=== PATIENT | female | born 1975 | race Caucasian/White ===

== ENCOUNTER 2023-02-22 01:09 | Inpatient (IN) | payer MEDICAID, OTHER ==
[~2023-02-22] VITALS: Ht 147.3 cm; Wt 59.0 kg
[2023-02-22] MEDS ORDERED: LIDOCAINE HCL 1% 20ML VIAL (Pyxis) INJ INFIL SCH (01:45)
[2023-02-22] MEDS ORDERED: CARBOPROST TROMETHAMINE 250 MCG/ML AMPUL IM PRN (01:45)
[2023-02-22] MEDS ORDERED: DIPHENHYDRAMINE 50MG/ML VIAL IM PRN (01:45)
[2023-02-22] MEDS ORDERED: METHYLERGONOVINE MALEATE 0.2 MG/ML IM PRN ×2 (01:45→21:00)
[2023-02-22] MEDS ORDERED: ONDANSETRON HCL 4MG/2ML INJ IM PRN (01:45)
[2023-02-22] MEDS ORDERED: NALOXONE HCL 0.4 MG/ML 1ML VIAL IM PRN (01:45)
[2023-02-22] MEDS ORDERED: RHO(D) IMMUNE GLOBULIN 300 MCG/SYR IM ONE (01:45)
[2023-02-22] MEDS ORDERED: AMPICILLIN 2GM in NS 100ML 100 ML IV SCH (01:45)
[2023-02-22] MEDS ORDERED: FENTANYL CITRATE/PF 50MCG/ML 2ML VIAL IV PRN (01:45)
[2023-02-22] MEDS: LACTATED RINGERS 1,000 ML IV SCH ×4 (02:23→19:55)
[2023-02-22 02:51] LABS: BASOPHILS % 0.9 % (0.0-2.0); EOSINOPHILS % 1.5 % (0.0-5.0); HEMATOCRIT. 36.2 % (36.0-48.0); HEMOGLOBIN. 12.2 g/dL (12.0-16.0); LYMPHOCYTES % 21.1 % (20.0-50.0); MEAN CORPUSCULAR HEMOGLOBIN 32.1 pg (28.0-32.0); MEAN CORPUSCULAR HGB CONC 33.8 g/dL (31.0-37.0); MEAN CORPUSCULAR VOLUME 94.9 fL (81.0-99.0); MEAN PLATELET VOLUME 10.9 fl (7.4-10.4); MONOCYTES % 7.1 % (2.0-8.0); NEUTROPHILS % 69.4 % (40.0-76.0); PLATELET 133 x1000/uL (130-400); RED BLOOD CELL COUNT 3.81 mill/uL (4.2-5.4); RED CELL DISTRIBUTION WIDTH 12.7 % (11.6-14.6); WHITE BLOOD COUNT 9.6 x1000/uL (4.5-11.0)
[2023-02-22 02:53] LABS: CLARITY URINE CLEAR (CLEAR); COLOR URINE YELLOW (YELLOW); GLUCOSE URINE NEGATIVE (NEGATIVE); KETONES URINE NEGATIVE (NEGATIVE); LEUKOCYTE ESTERASE URINE TRACE (NEGATIVE); NITRITE URINE NEGATIVE (NEGATIVE); OCCULT BLOOD URINE NEGATIVE (NEGATIVE); PROTEIN URINE NEGATIVE (NEGATIVE); UROBILINOGEN URINE 0.2 E.U./dL (0.2-1.0)
[2023-02-22] MEDS: OXYTOCIN 30 UNITS/500ML NS PMX 500 ML IV SCH ×2 (02:53→14:14)
[2023-02-22 02:54] LABS: BACTERIA URINE NONE SEEN; SQUAMOUS EPITHELIAL CELL URINE 1+ /lpf (RARE/1+); YEAST URINE NONE SEEN
[2023-02-22 03:04] LABS: INR 0.9; PARTIAL THROMBOPLASTIN TIME 25.9 sec (23.4-31.0)
[2023-02-22 03:09] LABS: *AMPHETAMINES SCREEN URINE NEGATIVE (NEGATIVE); *BARBITURATES SCREEN URINE NEGATIVE (NEGATIVE); *BENZODIAZEPINES SCREEN URINE NEGATIVE (NEGATIVE); *COCAINE SCREEN URINE NEGATIVE (NEGATIVE); CANNABINOID URINE SCREEN NEGATIVE (NEGATIVE); ECSTASY MDMA SCREEN URINE NEGATIVE (NEGATIVE); METHADONE URINE SCREEN NEGATIVE (NEGATIVE); OPIATES URINE SCREEN NEGATIVE (NEGATIVE); PHENCYCLIDINE URINE SCREEN NEGATIVE (NEGATIVE)
[2023-02-22 03:17] LABS: RAPID HIV SCREEN NEGATIVE (NEGATIVE)
[2023-02-22 03:58] LABS: HEPATITIS B SURFACE ANTIGEN NEGATIVE
[2023-02-22 04:12] LABS: RUBELLA IGG > 500.0 IU/mL (4.99-10)
[2023-02-22 04:47] LABS: RBC URINE 0-2 /hpf (0-2)
[2023-02-22] MEDS ORDERED: PNV (06:37)
[2023-02-22] MEDS: AMPICILLIN 1,000 MG in SODIUM CHLORIDE 0.9% 50 ML IV SCH ×3 (08:00→20:03)
[2023-02-22] MEDS ORDERED: ROPIVACAINE HCL/PF EPIDURAL 200 ML EPI SCH (17:15)
[2023-02-22] MEDS ORDERED: ROPIVACAINE HCL/PF EPIDURAL 200 ML EPI ONE (17:27)
[2023-02-22] MEDS ORDERED: IBUPROFEN 400MG TABLET PO PRN (21:00)
[2023-02-22] MEDS ORDERED: DOCUSATE SODIUM 100MG CAPSULE PO SCH (21:00)
[2023-02-22] MEDS ORDERED: DIPHENHYDRAMINE 25MG CAPSULE PO PRN (21:00)
[2023-02-22] MEDS ORDERED: LANOLIN OINT 7GM TUBE TOP PRN (21:00)
[2023-02-22] MEDS ORDERED: HEMORRHOIDAL SUPP PR PRN (21:00)
[2023-02-22] MEDS ORDERED: ACETAMINOPHEN WITH CODEINE 300/30MG TABLET PO PRN (21:00)
[2023-02-22] MEDS ORDERED: BISACODYL 10MG SUPP PR PRN (21:00)
[2023-02-22] MEDS ORDERED: OXYTOCIN 30 UNITS/500ML NS PMX 500 ML IV SCH (21:00)
[2023-02-22] MEDS ORDERED: GLYCERIN/WITCH HAZEL LEAF MEDICATED PAD TOP PRN (21:00)
[2023-02-22 23:15] VITALS: BP 129/63; PULSE 60; RESP 18; TEMP 98.5; O2SAT 98
[2023-02-22] MEDS: IBUPROFEN 800MG TABLET PO PRN (23:36)
[2023-02-23 04:00] VITALS: BP 115/58; PULSE 60; RESP 18; TEMP 98.8
[2023-02-23 07:35] LABS: PARTIAL THROMBOPLASTIN TIME 30.5 sec (23.4-31.0); PROTHROMBIN TIME 10.6 sec (9.6-11.0)
[2023-02-23 07:46] LABS: BASOPHILS % 0.2 % (0.0-2.0); EOSINOPHILS % 0.4 % (0.0-5.0); HEMATOCRIT. 27.8 % (36.0-48.0); HEMOGLOBIN. 9.6 g/dL (12.0-16.0); LYMPHOCYTES % 17.6 % (20.0-50.0); MEAN CORPUSCULAR HEMOGLOBIN 32.3 pg (28.0-32.0); MEAN CORPUSCULAR HGB CONC 34.4 g/dL (31.0-37.0); MEAN PLATELET VOLUME 10.1 fl (7.4-10.4); MONOCYTES % 6.7 % (2.0-8.0); NEUTROPHILS % 75.1 % (40.0-76.0); PLATELET 81 x1000/uL (130-400); RED BLOOD CELL COUNT 2.96 mill/uL (4.2-5.4); RED CELL DISTRIBUTION WIDTH 13.1 % (11.6-14.6); WHITE BLOOD COUNT 9.2 x1000/uL (4.5-11.0)
[2023-02-23 08:00] VITALS: BP 109/57; PULSE 63; RESP 18; TEMP 98.4; O2SAT 98
[2023-02-23] MEDS: SIMETHICONE 80MG TABLET CHEW PO SCH ×4 (08:00→21:35)
[2023-02-23] MEDS: PRENATAL VIT/FE FUMARATE/FA TABLET PO SCH (09:06)
[2023-02-23] MEDS: FERROUS SULFATE 325MG TABLET PO SCH ×3 (09:07→18:25)
[2023-02-23] MEDS: IBUPROFEN 800MG TABLET PO PRN ×2 (13:11→21:35)
[2023-02-23 16:00] VITALS: BP 103/45; PULSE 59; RESP 18; TEMP 98.4
[2023-02-23 20:00] VITALS: BP 107/57; PULSE 60; RESP 18; TEMP 98.6; O2SAT 98
[2023-02-24 02:45] VITALS: BP 104/54; PULSE 62; RESP 18; TEMP 98.6
[2023-02-24] MEDS: IBUPROFEN 800MG TABLET PO PRN (02:45)
[2023-02-24 08:00] VITALS: BP 105/48; PULSE 78; RESP 18; TEMP 98.1; O2SAT 96
[2023-02-24] MEDS ORDERED: IBUP-2030 PO (08:25)
[2023-02-24] MEDS: PRENATAL VIT/FE FUMARATE/FA TABLET PO SCH (08:59)
[2023-02-24] MEDS: FERROUS SULFATE 325MG TABLET PO SCH (08:59)
== END 2023-02-24 11:45 | disposition home or self-care (01) | DRG 560 ==
LOC: OBSVTOIN 01:09 → 8 EST LDRP 01:09 → 8EST 23:15
PROVIDERS: ADMIT Obstetrics & Gynecology; ATTEND Obstetrics & Gynecology
PROC: 10E0XZZ Delivery of Products of Conception, External Approach (ICD-10-PCS; principal; 2023-02-22)
DX: O77.0 Labor and delivery complicated by meconium in amniotic fluid (principal); Z37.0 Single live birth; O41.03X0 Oligohydramnios, third trimester, not applicable or unspecified; O99.214 Obesity complicating childbirth; Z3A.37 37 weeks gestation of pregnancy
CPT/HCPCS: 36415; 76805; 76818; 80305; 81003; 85025; 86592; 86703; 86762; 86850; 86900; 87340; 99281; G0378; J0290; J2795; J3490; J7120; J2590